=== PATIENT | female | born 2000 | race Caucasian/White ===

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

== ENCOUNTER 2024-09-30 14:29 | Emergency (ER) | payer OTHER ==
[~2024-09-30] VITALS: Ht 172.7 cm; Wt 86.2 kg
[~2024-09-30 14:29] MED LIST changes: +ADDERALL 10 MG10 MG PO
[2024-09-30 14:37] VITALS: BP 140/93
== END 2024-09-30 14:48 | disposition home or self-care (01) ==
LOC: ER 14:29
DX: R56.9 Unspecified convulsions (principal); S09.90XA Unspecified injury of head, initial encounter; Z87.891 Personal history of nicotine dependence; Z91.013 Allergy to seafood; Z79.899 Other long term (current) drug therapy; W22.8XXA Striking against or struck by other objects, initial encounter
CPT/HCPCS: 99283

== ENCOUNTER → 2024-11-14 | Outpatient (CLI) | payer OTHER | END | disposition home or self-care (01) | LOC: LAB 17:32 → LAB SHORT 17:32 | PROVIDERS: Advanced Practice Midwife | DX: Z01.419 Encounter for gynecological examination (general) (routine) without abnormal findings (principal) | CPT/HCPCS: G0145 ==

== ENCOUNTER → 2025-02-03 | Outpatient (CLI) | payer OTHER ==
[2025-02-06 04:46] LABS: B PERTUSSIS/PARAPERTUSS SOURCE Nasopharyngeal; BORD PARAPERTUSSIS BY PCR Not Detected; BORDETELLA PERTUSSIS BY PCR Not Detected
== END | disposition home or self-care (01) ==
LOC: LAB SHORT 16:33 → LAB 16:33
PROVIDERS: Physician Assistant Medical
DX: J06.9 Acute upper respiratory infection, unspecified (principal)
CPT/HCPCS: 87798